=== PATIENT | male | born 1960 ===

== ENCOUNTER 2021-03-29 08:00 | Inpatient (IN) | payer OTHER ==
[~2021-03-29] VITALS: Ht 167.6 cm; Wt 72.1 kg
[2021-03-29] MEDS ORDERED: PERCOCET 5-3251 EACH PO (08:46)
[2021-04-03] MEDS ORDERED: ADVIL200 M1 (13:58)
[2021-04-03] MEDS ORDERED: CALCIUM 600-VI1 EAC2 (13:58)
[2021-04-03] MEDS ORDERED: CLOTRIMAZOLE45 G1 (13:59)
[2021-04-03] MEDS ORDERED: CENTRUM ADULTS1 EACH (13:59)
[2021-04-03] MEDS ORDERED: PAIN RELIEVER500 M2 (13:59)
[2021-04-05] MEDS ORDERED: ELIQUIS2.5 MG PO (11:53)
[2021-04-05] MEDS ORDERED: DUI500 PO (11:53)
[2021-04-05] MEDS ORDERED: PERCOCET 5-3251 EACH PO (11:53)
== END 2021-04-05 14:10 | DRG 470 ==
LOC: O/R 04-03 07:09 → SURH 04-03 07:09 → SURG 04-04 00:04 → SURH 04-04 00:52
PROVIDERS: ADMIT Orthopaedic Surgery; ATTEND Orthopaedic Surgery
PROC: 0SRC0J9 Replacement of Right Knee Joint with Synthetic Substitute, Cemented, Open Approach (ICD-10-PCS; principal; 2021-04-03 10:15)
DX: M17.11 Unilateral primary osteoarthritis, right knee (principal); D62 Acute posthemorrhagic anemia